=== PATIENT | male | born 1965 | race Caucasian/White ===

== ENCOUNTER 2017-01-23 09:10 | Emergency (ER) | payer OTHER ==
[~2017-01-23] VITALS: Ht 177.8 cm; Wt 94.0 kg
[~2017-01-23 09:10] MED LIST: ASPI81TA25 PO; FENO145T26 PO; GLC500 PO; LEVO125T72 PO; METO25TA56 PO; OMEP20CA59 PO; ROSU40TA PO
[2017-01-23 09:12] VITALS: TEMP 36.8; Ht 177.8 cm; Wt 94.0 kg
[2017-01-23 09:36] VITALS: O2SAT 95
[2017-01-23] MEDS ORDERED: ALUMINUM/MAGNESIUM SUSP 30 ML UDC PO STA (09:39)
[2017-01-23] MEDS ORDERED: LIDOCAINE HCL 2% VISC SOLN 20 ML UDC PO STA (09:39)
[2017-01-23] MEDS ORDERED: CLIN300C2 PO (09:45)
[2017-01-23] MEDS ORDERED: CLR10 PO (09:45)
[2017-01-23 09:46] LABS: HEMATOCRIT 46.3 % (42-52); MEAN CELL VOLUME 90.8 fL (80-100); MEAN CORPUSCULAR HEMOGLOBIN 30.4 pg (25-34); MEAN CORPUSCULAR HGB CONC 33.5 g/dl (32-36); MEAN PLATELET VOLUME 10.1 fL (7.4-10.4); PLATELET COUNT 555 K/uL (130-400)
[2017-01-23 09:56] LABS: ALT/SGPT 57 U/L (12-78); BLOOD UREA NITROGEN 18 mg/dl (7-18); BUN/CREATININE RATIO 13.5 (10-20); CALCIUM 9.9 mg/dl (8.5-10.1); CARBON DIOXIDE 23 mmol/L (21-32); CHLORIDE 106 mmol/L (98-107); GLUCOSE 173 mg/dl (70-99); POTASSIUM 4.1 mmol/L (3.5-5.1); SODIUM 139 mmol/L (136-145)
[2017-01-23 10:01] LABS: ALKALINE PHOSPHATASE 73 U/L (45-117); AST/SGOT 36 U/L (15-37); CKMB/CK RATIO 1.1 (0-3.0)
--- NOTE | 2017-01-23 10:23 | DIAGNOSTIC IMAGING REPORT ---
CHEST ONE VIEW PORTABLE CLINICAL HISTORY: Atypical chest pain COMPARISON STUDY: 07/12/2014 FINDINGS: The cardiac and mediastinal contours are normal. There is no evidence of focal pulmonary consolidation. There is no evidence of failure. No pleural effusions are visualized.[ IMPRESSION: No active disease in the chest. Electronically signed by: Derek Hurley M.D. 01/23/2017 10:22 AM Dictated Date/Time: 01/23/2017 10:21 AM
[2017-01-23 10:40] LABS: ACANTHOCYTES 1+; BASO ABS # 0.56 K/uL (0-0.2); BASOPHIL % 3.5 % (0-2); COMPLETE YES; HOWELL-JOLLY BODIES 1+; LARGE GRANULAR LYMPH ABSOLUTE 3.63 K/uL; LARGE GRANULAR LYMPHOCYTE % 22.8 %; LYMPH ABS # 2.93 K/uL (1.2-3.4); LYMPHOCYTE % 18.4 %; NEUTROPHILS % 51.8 %
[2017-01-23] MEDS ORDERED: PRLSR20 PO (12:17)
[2017-01-23] MEDS ORDERED: CEFD1CAP14 PO (12:18)
[2017-01-23] MEDS ORDERED: RANI150T3 PO (12:18)
--- NOTE | 2017-01-23 12:24 | EMERGENCY ROOM VISIT NOTE ---
History Report prepared by Abbi: Elfego Castanon Under the Supervision of: Dr. Sallie Adkins M.D. First contact with patient: 09:23 Chief Complaint: ILLNESS Stated Complaint: CHEST PAIN LAST EVENING, SOB History of Present Illness The patient is a 51 year old male who presents to the Emergency Room with complaints of intermittent "burning" centralized chest pain beginning last night. He also complains of a cough, chills, and SOB. He states that his coughing worsened his chest pain significantly. The patient notes that he is currently on Clindamycin for strep throat. He states that he feels symptoms of GERD every time he takes his Clindamycin. He is on Prilosec for his GERD. The patient had a stress test last year, but is scheduled for another stress test in a few months. He denies any increased pain with exertion. He denies any pain radiation, or leg swelling. The patient has a history of a previous CO occurring over 10 years ago. He took aspirin and nitroglycerin for his symptoms , but is unsure if it has helped. He has no history of blood clots. Source of History: patient Onset: Yesterday Position: chest (centralized) Quality: burning Timing: intermittent Associated Symptoms: + chills, + cough, + SOB Note: The patient denies any pain radiation or leg swelling. Review of Systems See HPI for pertinent positives & negatives. A total of 10 systems reviewed and were otherwise negative. Past Medical & Surgical Medical Problems: (1) Diabetes (2) GERD (gastroesophageal reflux disease) (3) Heart disease (4) HTN (hypertension) (5) Myocardial infarct Family History Hypertension Social History Smoking Status: Never Smoker Alcohol Use: none Drug Use: none Marital Status: Housing Status: lives with family Occupation Status: employed Current/Historical Medications Scheduled Aspirin (Aspir-Low), 81 MG PO QAM Cefdinir (Omnicef), 300 MG PO Q12H Clindamycin Hcl (Cleocin), 1 CAP PO TID Fenofibrate (Tricor), 145 MG PO QAM Levothyroxine Sodium (Synthroid), 125 MCG PO QAM Loratadine (Claritin), 10 MG PO DAILY Metformin HCl (Metformin HCl), 1 TAB PO BID Metoprolol Tartrate (Lopressor) (Lopressor), 0.05 TAB PO BID Omeprazole (Prilosec), 20 MG PO QAM Omeprazole (Prilosec), 20 MG PO BID Rosuvastatin Calcium (Crestor), 40 MG PO QPM Scheduled PRN Ranitidine Hcl (Zantac), 150 MG PO BID PRN for GERD Allergies Coded Allergies: Amoxicillin (Verified Allergy, Unknown, RASH, 01/23/17) Physical Exam Vital Signs Date Time Temp Pulse Resp B/P (MAP) Pulse Ox O2 Delivery O2 Flow Rate FiO2 01/23/17 12:30 72 18 113/65 95 01/23/17 11:30 69 18 122/67 96 Room Air 01/23/17 09:37 76 16 120/72 94 Room Air 01/23/17 09:36 95 Room Air 01/23/17 09:29 67 01/23/17 09:12 36.8 73 18 105/62 96 Room Air Physical Exam Vital signs reviewed. General: Well-appearing male, in no significant distress. HEENT: No scleral icterus, PERRLA, neck supple. Atraumatic. Cardiovascular: Regular rate and rhythm, no extra sounds. Pulmonary: Clear to auscultation bilaterally, normal work of breathing. Abdomen: Soft, nontender, nondistended, positive bowel sounds. Musculoskeletal: Atraumatic, no peripheral edema. Neurologic: Patient awake alert and oriented x 3, full strength in all 4 extremities. Cranial nerves 2 through 12 grossly intact. Skin: Warm, dry, no rash Medical Decision & Procedures ER Provider Diagnostic Interpretation: X-ray results as stated below per interpretation by me and the radiologist: CHEST ONE VIEW PORTABLE FINDINGS: The cardiac and mediastinal contours are normal. There is no evidence of focal pulmonary consolidation. There is no evidence of failure. No pleural effusions are visualized.[ IMPRESSION: No active disease in the chest. Electronically signed by: Derek Hurley M.D. Laboratory Results 01/23/17 09:34 Red Blood Count 5.10, Mean Corpuscular Volume 90.8, Mean Corpuscular Hemoglobin 30.4, Mean Corpuscular Hemoglobin Concent 33.5, Mean Platelet Volume 10.1 01/23/17 09:34 Test 01/23/17 09:34 01/23/17 11:40 White Blood Count 15.90 K/uL (4.8-10.8) Red Blood Count 5.10 M/uL (4.7-6.1) Hemoglobin 15.5 g/dL (14.0-18.0) Hematocrit 46.3 % (42-52) Mean Corpuscular Volume 90.8 fL (80-100) Mean Corpuscular Hemoglobin 30.4 pg (25-34) Mean Corpuscular Hemoglobin Concent 33.5 g/dl (32-36) Platelet Count 555 K/uL (130-400) Mean Platelet Volume 10.1 fL (7.4-10.4) RDW Standard Deviation 46.4 fL (36.4-46.3) RDW Coefficient of Variation 13.9 % (11.5-14.5) Neutrophils % (Manual) 51.8 % Lymphocytes % (Manual) 18.4 % Monocytes % (Manual) 3.5 % Basophils % (Manual) 3.5 % (0-2) Neutrophils # (Manual) 8.24 K/uL (1.4-6.5) Total Absolute Neutrophils 8.24 K/uL (1.4-6.5) Lymphocytes # (Manual) 2.93 K/uL (1.2-3.4) Total Absolute Lymphocytes 6.55 K/uL (1.2-3.4) Monocytes # (Manual) 0.56 K/uL (0.11-0.59) Basophils # (Manual) 0.56 K/uL (0-0.2) Percent Large Granular Lymphocytes 22.8 % Absolute Large Granular Lymphocytes 3.63 K/uL [place] Bodies 1+ Acanthocytes 1+ Anion Gap 10.0 mmol/L (3-11) Est Creatinine Clear Calc Drug Dose 79.1 ml/min Estimated GFR () 74.3 Estimated GFR (Non- 64.1 BUN/Creatinine Ratio 13.5 (10-20) Calcium Level 9.9 mg/dl (8.5-10.1) Total Bilirubin 0.2 mg/dl (0.2-1) Direct Bilirubin < 0.1 mg/dl (0-0.2) Aspartate Amino Transf (AST/SGOT) 36 U/L (15-37) Alanine Aminotransferase (ALT/SGPT) 57 U/L (12-78) Alkaline Phosphatase 73 U/L (45-117) Total Creatine Kinase 98 U/L (39-308) Creatine Kinase MB 1.1 ng/ml (0.5-3.6) Creatine Kinase MB Ratio 1.1 (0-3.0) Total Protein 7.6 gm/dl (6.4-8.2) Albumin 3.7 gm/dl (3.4-5.0) Bedside Troponin I < 0.030 ng/ml (0-0.045) Laboratory results per my review. Medications Administered Medications (Trade) Dose Ordered Sig/[place] Route Start Time Stop Time Status Last Admin Dose Admin Lidocaine HCl (Viscous Lidocaine 2% Soln) 10 ml NOW STAT PO 01/23/17 09:39 01/23/17 09:42 DC 01/23/17 09:48 10 ML Al Hydroxide/Mg Hydroxide (Maalox Susp) 30 ml NOW STAT PO 01/23/17 09:39 01/23/17 09:42 DC 01/23/17 09:48 30 ML ECG Indication: chest pain Rate (beats per minute): 67 Rhythm: normal sinus Findings: no acute ischemic change, no ectopy, other (J-point elevation in the anterior leads. ) Comparison ECG Date: July 12, 2014 Change: no significant change ED Course 0930: Past medical records reviewed. The patient was evaluated in room A9B. A complete history and physical examination was performed. 0939: Ordered Maalox Susp 30 mL O, Lidocaine HCl 10 mL PO. 1132: I reassessed the patient. He is feeling better. 1220: Upon reevaluation, the patient appeared to have improvement of his symptoms. I discussed findings with him. The patient verbalized agreement of the treatment plan. He was discharged home. Medical Decision Differential diagnosis: Acute coronary syndrome, pulmonary embolus, aortic dissection, musculoskeletal pain, pneumonia, pleural effusion, pneumothorax, medication intolerance, GERD This patient was evaluated and appeared to be in no significant distress. IV access was obtained and laboratory work was drawn. Patient was placed on the lead injection mold technician and found to be in a normal sinus rhythm. EKG reveals no evidence of acute ischemic change. There is no change from EKG dated June 2014. Cardiac enzymes are negative 2. Patient had some improvement with a GI cocktail. I suspect his symptoms are GERD/gastritis related to the clindamycin he is taking. The patient has a rash reaction to amoxicillin. He was switched to Omnicef 300 mg twice daily for 10 days. He will stop the clindamycin. He will increase the Prilosec to 20 mg twice a day. He continues Zantac as needed when necessary. Patient will follow-up with his primary care physician this week and return to the ER for worsening of symptoms or any medical concerns. Impression Primary Impression: GERD (gastroesophageal reflux disease) Additional Impression: Medication intolerance Scribe Attestation The scribe's documentation has been prepared under my direction and personally reviewed by me in its entirety. I confirm that the note above accurately reflects all work, treatment, procedures, and medical decision making performed by me. Departure Information Dispostion Home / Self-Care Prescriptions Cefdinir (Omnicef) 300 Mg Cap 300 MG PO Q12H for 10 Days, #20 CAP Prov: Sallie Adkins M.D. 01/23/17 Ranitidine Hcl (ZANTAC) 150 Mg Tab 150 MG PO BID Y for GERD, #30 TAB Prov: Sallie Adkins M.D. 01/23/17 Omeprazole (PRILOSEC) 20 Mg Capcr 20 MG PO BID for 7 Days, #14 CAP Prov: Sallie Adkins M.D. 01/23/17 Referrals Dereje Henderson M.D. (PCP) Forms HOME CARE DOCUMENTATION FORM, IMPORTANT VISIT INFORMATION, WORK / SCHOOL INSTRUCTIONS Patient Instructions My [facility] Additional Instructions Diagnosis: GERD, medication intolerance Increase prilosec to 20 mg TWICE daily. Zantac 150 mg every 12 hours as needed for gastritis. Drink plenty of fluids. Avoid coffee, alcohol, aspirin, aleve and ibuprofen Return to the ED for worsening of symptoms or any medical concerns. Problem Qualifiers
[2017-01-23 12:30] VITALS: BP 113/65; PULSE 72; O2SAT 95
== END 2017-01-23 12:30 | disposition home or self-care (01) ==
LOC: C.EDB 09:13 → C.EDA 12:30
DX: K21.9 Gastro-esophageal reflux disease without esophagitis (principal); Z79.82 Long term (current) use of aspirin; Z79.899 Other long term (current) drug therapy; E11.9 Type 2 diabetes mellitus without complications; I10 Essential (primary) hypertension; I25.2 Old myocardial infarction; Z82.49 Family history of ischemic heart disease and other diseases of the circulatory system

== ENCOUNTER → 2017-06-11 | Outpatient (CLI) | payer OTHER ==
[~2017-06-11] MED LIST changes: +CLIN300C2 PO; +CLR10 PO; +OPTIRAY 320 IV PRN; +RANI150T3 PO
--- NOTE | 2017-06-11 09:35 | DIAGNOSTIC IMAGING REPORT ---
CT CHEST ANGIO WITH CONTRAST CT DOSE: 403.38 mGy.cm CLINICAL HISTORY: Bicuspid aortic valve. TECHNIQUE: The patient was scanned in a dynamic helical fashion during intravenous administration of 119 cc Optiray 320. MIP imaging was performed. A dose lowering technique was utilized adhering to the principles of ALARA. COMPARISON STUDY: 06/24/2013 FINDINGS: No thyroid masses are visualized. There is no evidence of pathologic mediastinal lymphadenopathy. There is no evidence of pathologic hilar lymphadenopathy. There is no evidence of pathologic axillary lymphadenopathy. There are no pulmonary artery filling defects to indicate acute pulmonary embolism. There is no evidence of thoracic aortic aneurysm. The ascending thoracic aorta measures 29 mm. There is no evidence of thoracic aortic dissection. There is no evidence of coarctation. Although this study was not performed in a gated fashion, the images of the aortic root suggest a tricuspid valve. No pleural effusions are visualized. There is no evidence of focal pulmonary consolidation. There is minor biapical pleural-parenchymal scarring. There is a 3.4 mm solid right upper lobe pulmonary nodule. This remains unchanged the prior June 2013 study. There is hepatic steatosis. IMPRESSION: 1. No evidence of thoracic aortic aneurysm, dissection, or a large dictation 2. Stable 3 mm right upper lobe pulmonary nodule 3. No evidence of pathologic adenopathy 4. Hepatic steatosis Electronically signed by: Derek Hurley M.D. 06/11/2017 9:34 AM Dictated Date/Time: 06/11/2017 9:24 AM
== END | disposition home or self-care (01) ==
LOC: C.CTS 09:03
PROVIDERS: ATTEND Internal Medicine Cardiovascular Disease
DX: Q23.1 Congenital insufficiency of aortic valve (principal); R91.1 Solitary pulmonary nodule; K76.0 Fatty (change of) liver, not elsewhere classified

== ENCOUNTER 2017-08-27 17:47 | Emergency (ER) | payer OTHER ==
[~2017-08-27] VITALS: Ht 177.8 cm; Wt 92.4 kg
[~2017-08-27 17:47] MED LIST changes: -OPTIRAY 320 IV PRN; -RANI150T3 PO
[2017-08-27] MEDS ORDERED: SODIUM BICARB 8.4% INJ 50 MEQ/50 ML SYR IV ONE ×2 (17:49→21:26)
[2017-08-27] MEDS ORDERED: ATROPINE SULFATE 0.1 MG/ML 10 ML SYR IV ONE (17:49)
[2017-08-27] MEDS ORDERED: SODIUM CHLORIDE 0.9% 10ML FLUSH IV ONE (17:49)
[2017-08-27] MEDS ORDERED: AMIODARONE HCL INJ 50 MG/ML 3 ML VIAL IV ONE (17:49)
[2017-08-27] MEDS ORDERED: DEXTROSE 5% 100 ML BAG IV ONE (17:49)
[2017-08-27 17:51] VITALS: TEMP 36.7; Ht 177.8 cm; Wt 92.4 kg
[2017-08-27] MEDS ORDERED: ASPIRIN 81 MG CHEW PO STA (18:12)
[2017-08-27] MEDS ORDERED: NITROGLYCERIN 2% OINTMENT 30GM TUBE EXT STA (18:15)
[2017-08-27 18:19] VITALS: O2SAT 98
[2017-08-27] MEDS ORDERED: HEPARIN SOD 5000 UNIT/0.5 ML CARP ONE (18:21)
[2017-08-27] MEDS ORDERED: HEPARIN SOD (PORCINE) 1000 UNIT/ML 10 ML VIAL IV STA (18:23)
[2017-08-27 18:25] LABS: HEMATOCRIT 45.6 % (42-52); HEMOGLOBIN 15.2 g/dL (14.0-18.0); MEAN CELL VOLUME 92.1 fL (80-100); MEAN CORPUSCULAR HEMOGLOBIN 30.7 pg (25-34); MEAN CORPUSCULAR HGB CONC 33.3 g/dl (32-36); MEAN PLATELET VOLUME 10.3 fL (7.4-10.4); PLATELET COUNT 561 K/uL (130-400); RED CELL DISTRIBUTION WIDTH CV 14.4 % (11.5-14.5); RED CELL DISTRIBUTION WIDTH SD 47.8 fL (36.4-46.3); WHITE BLOOD COUNT 20.98 K/uL (4.8-10.8)
[2017-08-27 18:33] LABS: PTT PATIENT 23.3 SECONDS (21.0-31.0)
[2017-08-27 18:33] LABS: ISTAT CREATININE 1.2 mg/dl (0.6-1.3); ISTAT IONIZED CALCIUM 1.36 mmol/l (1.12-1.32)
--- NOTE | 2017-08-27 18:41 | DIAGNOSTIC IMAGING REPORT ---
CHEST ONE VIEW PORTABLE HISTORY: 51 years-old Male chest pain acute atypical chest pain COMPARISON: Chest radiograph 01/23/2017, CTA chest 06/11/2017 TECHNIQUE: Portable AP view of the chest FINDINGS: Cardiomediastinal and hilar silhouettes are within normal limits. Atherosclerosis of the aorta. No pneumothorax, pleural effusion, focal airspace consolidation or overt pulmonary edema. Bones of the chest appear grossly intact. Curvilinear calcification overlying the right greater tuberosity may reflect calcific bursitis, however is nonspecific. Surgical clips project over the epigastric region. IMPRESSION: No acute process. The above report was generated using voice recognition software. It may contain grammatical, syntax or spelling errors. Electronically signed by: Kal Garza M.D. 08/27/2017 6:40 PM Dictated Date/Time: 08/27/2017 6:37 PM
[2017-08-27 18:42] VITALS: BP 135/79; PULSE 84; O2SAT 99
--- NOTE | 2017-08-27 18:44 | EMERGENCY ROOM VISIT NOTE ---
History First contact with patient: 18:02 Chief Complaint: CHEST PAIN Stated Complaint: CHEST PAIN, PRESSURE ON HEART- CARDIAC HX Nursing Triage Summary: onset of CP while on the eliptical today around noon. pt reports it was mid chest, burning in nature. Associated SOB and dizziness at that time. Pt also reports episode of the same on Saturday while using the radiology transporter. Pt reports burning, heartburn currently History of Present Illness The patient is a 51 year old male who presents to the Emergency Room via private vehicle with complaints of "chest pain, pressure and heart-cardiac history". The patient states that he has a history of NE with intervention in 2003. 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 It quickly resolved after rest. He states that earlier today around 3 or 3:30 PM he was on the treadmill exercising, and developed chest pain that extended from his throat to his umbilicus. He notes that when he exited the treadmill the pain went away. He now notes a burning sensation in his throat and superior chest. He notes it feels like a burning sensation somewhat that of reflux but states that when he had his previous heart attack it felt identical. He had a baby aspirin earlier today. Review of Systems A complete 10-point Review of Systems was discussed with the patient, with pertinent positives and negatives listed in the History of Present Illness. All remaining Review of Systems questions can be considered negative unless otherwise specified. Past Medical/Surgical History Medical Problems: (1) Diabetes (2) GERD (gastroesophageal reflux disease) (3) Heart disease (4) HTN (hypertension) (5) Myocardial infarct Family History Hypertension Social History Smoking Status: Never Smoker Alcohol Use: none Drug Use: none Marital Status: Housing Status: lives with family Occupation Status: employed Current/Historical Medications Scheduled Aspirin (Aspir-Low), 81 MG PO QAM Fenofibrate (Tricor), 145 MG PO QAM Levothyroxine Sodium (Synthroid), 125 MCG PO QAM Loratadine (Claritin), 10 MG PO DAILY Metformin HCl (Metformin HCl), 500 MG PO BID Metoprolol Tartrate (Lopressor) (Lopressor), 1 DOSE PO BID Omeprazole (Prilosec), 20 MG PO QAM Rosuvastatin Calcium (Crestor), 40 MG PO QPM Physical Exam Vital Signs Date Time Temp Pulse Resp B/P (MAP) Pulse Ox O2 Delivery O2 Flow Rate FiO2 08/27/17 18:42 84 15 135/79 99 Nasal Cannula 2.0 08/27/17 18:33 84 16 135/79 99 Nasal Cannula 2.0 08/27/17 18:19 98 Room Air 08/27/17 18:19 98 Room Air 08/27/17 18:12 80 08/27/17 17:51 36.7 72 18 115/69 96 Room Air Physical Exam VITAL SIGNS - Vital signs and nursing notes were reviewed. Stable. GENERAL - 51-year-old male appearing his stated age who is in no acute distress. He is flushed in appearance in relation to his skin hue. Communicates well with provider and answers questions appropriately. SKIN - Without rashes. HEAD - NC/AT. EYES - Sclera anicteric. EARS - No deformities of external structures noted on gross examination bilaterally. NOSE - Midline and without cyanosis. No epistaxis or purulent drainage noted. MOUTH/OROPHARYNX - Without perioral cyanosis. NECK - Neck with FROM. Supple to palpation. LUNGS - Chest wall symmetric without accessory muscle use, intercostals retractions, or central cyanosis. Normal vesicular breath sounds CTA B/L. No wheezes, rales, or rhonchi appreciated. CARDIAC - RRR with S1/S2. Loud murmur appreciated. ABDOMEN - Abdominal contour normal without pulsations or visible masses. EXTREMITIES - No clubbing or peripheral cyanosis. Medical Decision & Procedures ER Provider Diagnostic Interpretation: CHEST ONE VIEW PORTABLE HISTORY: 51 years-old Male chest pain acute atypical chest pain COMPARISON: Chest radiograph 01/23/2017, CTA chest 06/11/2017 TECHNIQUE: Portable AP view of the chest FINDINGS: Cardiomediastinal and hilar silhouettes are within normal limits. Atherosclerosis of the aorta. No pneumothorax, pleural effusion, focal airspace consolidation or overt pulmonary edema. Bones of the chest appear grossly intact. Curvilinear calcification overlying the right greater tuberosity may reflect calcific bursitis, however is nonspecific. Surgical clips project over the epigastric region. IMPRESSION: No acute process. The above report was generated using voice recognition software. It may contain grammatical, syntax or spelling errors. Electronically signed by: Kal Garza M.D. 08/27/2017 6:40 PM Dictated Date/Time: 08/27/2017 6:37 PM Laboratory Results 08/27/17 21:00 Red Blood Count 4.64, Mean Corpuscular Volume 94.2, Mean Corpuscular Hemoglobin 30.4, Mean Corpuscular Hemoglobin Concent 32.3, Mean Platelet Volume 11.0 08/27/17 21:00 Test 08/27/17 18:10 08/27/17 18:16 08/27/17 18:21 08/27/17 21:00 Activated Partial Thromboplast Time 23.3 SECONDS (21.0-31.0) Partial Thromboplastin Ratio 0.9 Total Bilirubin 0.3 mg/dl (0.2-1) Aspartate Amino Transf (AST/SGOT) 38 U/L (15-37) Alanine Aminotransferase (ALT/SGPT) 73 U/L (12-78) Alkaline Phosphatase 69 U/L (45-117) Total Creatine Kinase 155 U/L (39-308) Total Protein 8.1 gm/dl (6.4-8.2) Albumin 4.4 gm/dl (3.4-5.0) Globulin 3.7 gm/dl (2.5-4.0) Albumin/Globulin Ratio 1.2 (0.9-2) Thyroid Stimulating Hormone (TSH) 0.479 uIu/ml (0.300-4.500) Bedside Troponin I < 0.030 ng/ml (0-0.045) Bedside Hemoglobin 15.6 g/dl (14.0-18.0) Bedside Hematocrit 46 % (42-52) Bedside Sodium 142 mEq/L (135-144) Bedside Potassium 4.0 mEq/L (3.3-5.0) Bedside Chloride 103 mEq/L (101-112) Bedside Total CO2 25 mEq/l (24-31) Bedside Blood Urea Nitrogen 27 mg/dl (7-18) Bedside Creatinine 1.2 mg/dl (0.6-1.3) Bedside Glucose (other) 170 mg/dl (70-99) Bedside Ionized Calcium (Ralph) 1.36 mmol/l (1.12-1.32) White Blood Count 24.46 K/uL (4.8-10.8) Red Blood Count 4.64 M/uL (4.7-6.1) Hemoglobin 14.1 g/dL (14.0-18.0) Hematocrit 43.7 % (42-52) Mean Corpuscular Volume 94.2 fL (80-100) Mean Corpuscular Hemoglobin 30.4 pg (25-34) Mean Corpuscular Hemoglobin Concent 32.3 g/dl (32-36) Platelet Count 313 K/uL (130-400) Mean Platelet Volume 11.0 fL (7.4-10.4) RDW Standard Deviation 49.4 fL (36.4-46.3) RDW Coefficient of Variation 14.6 % (11.5-14.5) Neutrophils % (Manual) 40.0 % Lymphocytes % (Manual) 28.7 % Variant Lymphocytes % (manual) 25.2 % Monocytes % (Manual) 5.2 % Basophils % (Manual) 0.9 % (0-2) Neutrophils # (Manual) 9.78 K/uL (1.4-6.5) Total Absolute Neutrophils 9.78 K/uL (1.4-6.5) Lymphocytes # (Manual) 7.02 K/uL (1.2-3.4) Absolute Variant Lymphocytes 6.16 K/uL Total Absolute Lymphocytes 13.18 K/uL (1.2-3.4) Monocytes # (Manual) 1.27 K/uL (0.11-0.59) Basophils # (Manual) 0.22 K/uL (0-0.2) Anion Gap 13.0 mmol/L (3-11) Est Creatinine Clear Calc Drug Dose 72.9 ml/min Estimated GFR () 67.9 Estimated GFR (Non- 58.6 BUN/Creatinine Ratio 16.9 (10-20) Calcium Level 7.3 mg/dl (8.5-10.1) Creatine Kinase MB 1.3 ng/ml (0.5-3.6) Chemistry Specimen Hemolysis Test 08/27/17 21:49 08/27/17 22:10 Creatine Kinase MB Ratio (0-3.0) Lactic Acid Level 12.2 mmol/L (0.4-2.0) Medications Administered Medications (Trade) Dose Ordered Sig/[place] Route Start Time Stop Time Status Last Admin Dose Admin Aspirin (Aspirin Chew) 243 mg NOW STAT PO 08/27/17 18:12 08/27/17 18:14 DC 08/27/17 18:23 243 MG Nitroglycerin (Nitroglycerin 2% Oint) 1 inch NOW STAT EXT 08/27/17 18:15 08/27/17 18:16 DC 08/27/17 18:23 1 INCH Heparin Sodium (Porcine) (Heparin Sq 5000 Unit/0.5ml) 5,000 unit STK-MED ONCE .ROUTE 08/27/17 18:21 08/27/17 18:22 DC 08/27/17 18:27 5,000 UNIT Midazolam HCl (Versed Inj) 2 mg STK-MED ONCE .ROUTE 08/27/17 18:47 08/27/17 18:48 DC 08/27/17 18:47 2 MG Fentanyl Citrate (Fentanyl Inj) 100 mcg STK-MED ONCE .ROUTE 08/27/17 18:47 08/27/17 18:48 DC 08/27/17 18:47 50 MCG Midazolam HCl (Versed Inj) 2 mg STK-MED ONCE .ROUTE 08/27/17 19:36 08/27/17 19:37 DC 08/27/17 19:36 2 MG Fentanyl Citrate (Fentanyl Inj) 100 mcg STK-MED ONCE .ROUTE 08/27/17 19:36 08/27/17 19:37 DC 08/27/17 19:36 100 MCG Midazolam HCl (Versed Inj) 2 mg STK-MED ONCE .ROUTE 08/27/17 19:56 08/27/17 19:57 DC 08/27/17 19:56 2 MG Fentanyl Citrate (Fentanyl Inj) 100 mcg STK-MED ONCE .ROUTE 08/27/17 19:56 08/27/17 19:57 DC 08/27/17 19:56 100 MCG Furosemide (Lasix Inj) 40 mg STK-MED ONCE .ROUTE 08/27/17 20:15 08/27/17 20:16 DC 08/27/17 20:15 40 MG Ondansetron HCl (Zofran Inj) 4 mg STK-MED ONCE .ROUTE 08/27/17 20:20 08/27/17 20:21 DC 08/27/17 20:20 4 MG Dopamine HCl/ Dextrose (DOPamine 400MG / D5W) 400 mg STK-MED ONCE .ROUTE 08/27/17 20:21 08/27/17 20:22 DC 08/27/17 20:21 400 MG Norepinephrine Bitartrate (Levophed Inj) 8 mg STK-MED ONCE IV 08/27/17 20:25 08/27/17 20:26 DC 08/27/17 20:25 8 MG Phenylephrine HCl (Ken-Synephrine Inj) 10 mg STK-MED ONCE .ROUTE 08/27/17 20:36 08/27/17 20:37 DC 08/27/17 20:36 10 MG Phenylephrine HCl (Ken-Synephrine Inj) 10 mg STK-MED ONCE .ROUTE 08/27/17 20:40 08/27/17 20:41 DC 08/27/17 20:40 10 MG Epinephrine HCl (EpINEphrine INJ 1MG/ML AMP/VIAL) 4 mg STK-MED ONCE .ROUTE 08/27/17 21:18 08/27/17 21:19 DC 08/27/17 21:18 4 MG Sodium Bicarbonate (Sodium Bicarbonate 8.4% Inj) 100 ml STK-MED ONCE IV 08/27/17 21:26 08/27/17 21:27 DC 08/27/17 21:26 100 ML Midazolam HCl (Versed Inj) 2 mg STK-MED ONCE .ROUTE 08/27/17 21:29 08/27/17 21:30 DC 08/27/17 21:29 2 MG Fentanyl Citrate (Fentanyl Inj) 100 mcg STK-MED ONCE .ROUTE 08/27/17 21:29 08/27/17 21:30 DC 08/27/17 21:29 100 MCG Amiodarone HCL/ Dextrose (Nexterone / D5w) 360 mg STK-MED ONCE .ROUTE 08/27/17 21:41 08/27/17 21:42 DC 08/27/17 21:41 360 MG Amiodarone HCL/ Dextrose (Nexterone / D5w) 150 mg STK-MED ONCE .ROUTE 08/27/17 21:41 08/27/17 21:42 DC 08/27/17 21:41 150 MG Dobutamine HCl (DOBUTamine / D5W) 500 mg STK-MED ONCE .ROUTE 08/27/17 21:45 08/27/17 21:46 DC 08/27/17 21:45 500 MG Norepinephrine Bitartrate (Levophed Inj) 8 mg STK-MED ONCE IV 08/27/17 22:34 08/27/17 22:35 DC 08/27/17 22:34 8 MG Medical Decision Patient was seen and evaluated as above. Upon my entrance into the exam room the patient was flushed, and was noting he was feeling a burning sensation in his chest but no pain. Bedside EKG was reviewed and per my interpretation reveals a left bundle branch block which is new compared to previous. This is concerning in the setting of active chest pain. I called the attending physician and we discussed the case without delay. He was given aspirin, nitroglycerin. Chest x-ray was obtained. Heart alert was called. The attending physician, Dr. Srivastava also personally evaluate the patient and spoke with the cardiac interventionalist. They recommended 5000 units of heparin. This was given IV. The patient will be taken to the [facility] for further evaluation and management of his active chest pain in the setting of EKG changes. Initial troponin was 0.02. CBC reveals leukocytosis of 20.98. Coags normal. Metabolic panel reveals a dehydrated state with BUN elevated at 24 and cr at 1.32. No evidence of liver failure. Patient's AST elevated at 38. TSH normal. The patient will be taken to clinical lab clerk for intervention. Please refer to further documentation regarding his stay. In evaluation treatment this patient following differential diagnoses were entertained: NE, PE, dissection, pneumonia, pericarditis, costochondritis, among others. Impression Primary Impression: Chest pain Additional Impression: New onset left bundle branch block (LBBB) Departure Information Referrals Dereje Henderson M.D. (PCP) Forms Call Back Authorization, HOME CARE DOCUMENTATION FORM, IMPORTANT VISIT INFORMATION Patient Instructions My [facility] Problem Qualifiers
[2017-08-27 18:46] LABS: ALBUMIN 4.4 gm/dl (3.4-5.0); CALCIUM 9.7 mg/dl (8.5-10.1); CREATININE 1.32 mg/dl (0.60-1.40)
[2017-08-27] MEDS ORDERED: FENTANYL CITRATE INJ 50 MCG/1 ML 2 ML VIAL ONE ×4 (18:47→21:29)
[2017-08-27] MEDS ORDERED: NiCARDipine HCL INJ 2.5 MG/ML 10 ML AMP ONE (18:47)
[2017-08-27] MEDS ORDERED: MIDAZOLAM HCL 1 MG/ML 2ML VIAL ONE ×4 (18:47→21:29)
[2017-08-27] MEDS ORDERED: NITROGLYCERIN/D5W 100MCG/ML 20ML SYR ONE (18:48)
--- NOTE | 2017-08-27 18:52 | EMERGENCY ROOM VISIT NOTE ---
ED Visit Note First contact with patient: 18:02 Patient was seen by our PA/OPTICAL LATHE OPERATOR. I was involved in the patient's care and did evaluate the patient myself. I was involved in the care throughout the ER stay. The patient presents with substernal chest pain. He had pain a few days ago while doing some snow work that resolved with rest. Today, he had pain while exercising. The severe pain subsided after exercise but he's had some burning across his chest for the last several hours. The patient's workup does show a new left bundle-branch block with some ST elevation across the anterior leads. The bundle-branch block is new as of the last half a year. The patient is still having some mild burning in his chest. He does have an impressive systolic murmur on exam-the murmur has been documented in the past. Because of the change in the EKG and his ongoing chest pain. I did contact the modern greek studies professor on for heart alert. Based on the story, a heart alert was called.
[2017-08-27 18:56] LABS: CKMB 1.8 ng/ml (0.5-3.6); TOTAL PROTEIN 8.1 gm/dl (6.4-8.2)
[2017-08-27] MEDS ORDERED: ADENOSINE IV SOLN 3 MG/ML 20 ML VIAL ONE ×2 (20:00→20:01)
[2017-08-27] MEDS ORDERED: FUROSEMIDE 40 MG/4 ML VIAL ONE (20:15)
[2017-08-27] MEDS ORDERED: ONDANSETRON INJ 2 MG/ML 2 ML VIAL ONE (20:20)
[2017-08-27] MEDS ORDERED: DOPamine 400MG / 250ML D5W ONE (20:21)
[2017-08-27] MEDS ORDERED: NOREPINEPHRINE BITARTRATE 1 MG/ML 4 ML VIAL IV ONE ×2 (20:25→22:34)
[2017-08-27] MEDS ORDERED: PHENYLEPHRINE HCL INJ 10 MG/ML VIAL ONE ×2 (20:36→20:40)
[2017-08-27] MEDS ORDERED: EpINEphrine INJ 1MG/ML AMP 1 MG/ML AMP ONE (21:18)
--- NOTE | 2017-08-27 21:24 | Anesthesiology Progress Note ---
Anesthesia Progress Note Date of Service Aug 27, 2017. Progress Notes I was called by a member of the laborer/grade check team who stated they had a patient who was a heart alert that was becoming unstable and going into respiratory failure. I took the glidescope and anesthesia airway bag into the laborer/grade check to find Mr. Gonsalves undergoing emergent heart cath. He was conversant but had vomited and was complaining of chest pain. SpO2 was in low 90's. Shortly after I arrived, patient went into a malignant arrhythmia and was shocked x1 by Dr. Verde, attending die repairer trimmer dies. Patient again was conversant but as I was preparing to secure his airway became unresponsive and a code blue was called. Chest compressions were started and I maintained the airway with BVM with supplemental oxygen. After several rounds of compressions, patient regained consciousness and BP, HR and rhythm improved. Request was made to intubate and I administered 10mg etomidate followed by 100mg succinylcholine IV with cricoid pressure being held. DLx1 with glidescope #3 and 8.0 cuffed ETT was easily inserted. + ETCO2 and + b/l BS were auscultated. Respiratory therapy was present and secured the ETT and connected the patient to the ventilator. ICU attending was also present and he gave orders for vent settings. After airway was secured, evs attendant and ICU attending both stated they did not need any further from anesthesia.
[2017-08-27] MEDS ORDERED: AMIODARONE 360MG / 200ML D5W ONE (21:41)
[2017-08-27] MEDS ORDERED: AMIODARONE 150MG / 100ML D5W ONE (21:41)
[2017-08-27] MEDS ORDERED: DOBUTamine 500MG / 250ML D5W ONE (21:45)
[2017-08-27 22:02] LABS: HEMATOCRIT 43.7 % (42-52); HEMOGLOBIN 14.1 g/dL (14.0-18.0); MEAN CELL VOLUME 94.2 fL (80-100); MEAN CORPUSCULAR HEMOGLOBIN 30.4 pg (25-34); MEAN CORPUSCULAR HGB CONC 32.3 g/dl (32-36); PLATELET COUNT 313 K/uL (130-400); RED CELL DISTRIBUTION WIDTH CV 14.6 % (11.5-14.5); RED CELL DISTRIBUTION WIDTH SD 49.4 fL (36.4-46.3); WHITE BLOOD COUNT 24.46 K/uL (4.8-10.8)
[2017-08-27 22:12] LABS: BLOOD UREA NITROGEN 24 mg/dl (7-18); CALCIUM 7.3 mg/dl (8.5-10.1); CARBON DIOXIDE 18 mmol/L (21-32); GLUCOSE 286 mg/dl (70-99); POTASSIUM 3.6 mmol/L (3.5-5.1); SODIUM 139 mmol/L (136-145)
[2017-08-27 22:18] LABS: CKMB 1.3 ng/ml (0.5-3.6)
--- NOTE | 2017-08-27 23:59 | Cardiac Catheterization ---
Procedure Note Procedure Date Aug 27, 2017. 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 Pain recurred today after with exercise and presented with persistent chest burning. In found to have a new LBBB and Heart alert activated. Access: 6Fr slender right radial artery 6Fr right femoral artery 8Fr left femoral artery 6Fr right femoral vein Catheters: [place], JR4, 3DRC, Trap, RCB; JL3.5 guide; JR4 guide Findings: LM - 50% ostial stenosis, 20% distal stenosis LAD - Suspected at least moderate ostial LAD stenosis; angiographically normal mid and distal vessel; gives off 2 moderate caliber diagonals without significant disease. Circumflex - Moderate caliber vessel with minimal luminal irregularities. Gives off 3 OMs. Distal OM is moderate caliber without significant disease. RCA - Large, dominant vessel with ostial/proximal RCA stent with 95% ostial in- stent restenosis; widely patent mid circumflex stent; gives off large PDA and R- PLB with minimal disease. Significant difficulty engaging ostial RCA requiring multiple attempted catheters. Eventually able to demonstrate critical ostial in-stent restenosis of RCA with RCB catheter. LM and ostial LAD disease was questionable on initial angiography and plan was to further evaluate with iFR. With guide catheter was able to demonstrate severe ostial LM disease. In the setting of ostial RCA disease, ostial LM disease and moderate plan was to finish case and transfer to tertiary center for evaluation for CABG, AVR. Patient than began to develop severe chest pain, diaphoresis and hypoxia. Left system was shown to be unchanged. Noted to have new ST elevations in inferior leads and RCA thought likely to be occluded. Patient became increasingly hypotensive and started on dopamine and IVFs RCA was cannulated with JR4 guide and BMW was eventually passed into the distal vessel Rhythm change to VT requiring 1 defibrillation and amiodarone bolus. In the setting of hemodynamic/electrical instability, hypoxia and vomiting decision made to intubate patient In preparation for intubation patient had PEA arrest requiring epi and brief CPR with ROSC Code blue called and patient intubated by Dr. Parks. Attempted to POBA ostial ISR but with inflation to ostium ruptured multiple 2.5 compliant balloons. Patient became increasingly hypotensive requiring escalating pressors including norepinephrine, phenylephedrine/epinephrine boluses. Acidemia treated with multiple rounds of bicarb and eventual bicarb infusion. [facility] contacted for emergent transfer IABP placed to left PRINTER SLOTTER OPERATOR for additional support with initial adequate augmentation. Able to re-establish intermittent flow down RCA after 2.5 angiosculpt and multiple inflations with 3.0 compliant balloon. Unable to pass 3.0 angioscuplt. Discussions with [facility] regarding mobile ECMO placement here at [facility] Developed heart block requiring placement of temporary venous pacemaker Continued escalation of pressors including phenylephrine, dobutamine and epinephrine Became increasingly difficult to oxygenate and despite 5 pressors unable to maintain MAPs. Several episodes of VT/VF requiring defibrillation, and eventual PEA arrest. After more than 20 minutes of chest compressions, multiple rounds of epinephrine /bicarb patient remained in asystole and resuscitation efforts stopped. Time of 22:37. Hemodynamics Rest Ao: -- Final Ao: -- LV: -- Recommendations CABG Specimens None Radiation Exposure (mGy) -- Contrast (mls) -- Fluids (cc crystalloids) -- Procedural Complication(s) None ACC Data Cardiac Status Clinical evaluation leading to the procedure CAD Presntation: STEMI Closure Device PCI Indication: Immediate PCI for STEMI First Noted: First EKG
[2017-08-28] MEDS ORDERED: HEPARIN SOD (PORCINE) 1000 UNIT/ML 10 ML VIAL ONE (07:19)
[2017-08-28] MEDS ORDERED: ATROPINE SULFATE 0.1 MG/ML 10 ML SYR ONE (07:19)
== END 2017-08-27 18:50 | disposition still patient (30) ==
LOC: C.EDB 17:48
DX: I21.3 ST elevation (STEMI) myocardial infarction of unspecified site (principal); I25.10 Atherosclerotic heart disease of native coronary artery without angina pectoris; E11.9 Type 2 diabetes mellitus without complications; I73.9 Peripheral vascular disease, unspecified; I44.7 Left bundle-branch block, unspecified; K21.9 Gastro-esophageal reflux disease without esophagitis; I25.2 Old myocardial infarction; Z79.82 Long term (current) use of aspirin; Z79.899 Other long term (current) drug therapy; Z82.49 Family history of ischemic heart disease and other diseases of the circulatory system